=== PATIENT | female | born 1955 | race Caucasian/White ===

== ENCOUNTER → 2025-08-12 15:07 | Outpatient (REF) | payer OTHER, SELFPAY | LOC: WDC 15:07 | PROVIDERS: ATTENDING PHYSICIAN Internal Medicine Hematology & Oncology; FAMILY PHYSICIAN Hospitalist | DX: Z12.31 Encounter for screening mammogram for malignant neoplasm of breast (principal); C50.412 Malignant neoplasm of upper-outer quadrant of left female breast | CPT/HCPCS: 77063; 77067 ==